=== PATIENT | female | born 1990 | race American Indian/Alaskan Native ===

== ENCOUNTER 2018-07-07 07:28 | Emergency (ER) | payer MEDICAID ==
[2018-07-07 07:34] VITALS: BP 102/72
[2018-07-07 08:23] LABS: Basophils % (Auto) 0.2 % (0.0-1.8); Eosinophils # (Auto) 0.1 K/mm3 (0.0-0.4); Eosinophils % (Auto) 1.4 % (0.0-4.3); Hematocrit 36.9 % (30.3-42.9); Hemoglobin 12.7 gm/dl (10.1-14.3); Lymphocytes # (Auto) 2.4 K/mm3 (1.2-5.4); Mean Corpuscular HGB Conc 34 % (30-34); Mean Corpuscular Volume 90 fl (79-97); Monocytes # (Auto) 0.5 K/mm3 (0.0-0.8); Monocytes % (Auto) 6.3 % (0.0-7.3); Platelet Count 264 K/mm3 (140-440); Red Blood Count 4.11 M/mm3 (3.65-5.03); Red Cell Distribution Width 13.2 % (13.2-15.2)
[2018-07-07 08:35] LABS: INR 1.04 (0.87-1.13)
[2018-07-07 08:36] LABS: Partial Thromboplastin Time 31.2 Sec. (24.2-36.6)
[2018-07-07 08:44] LABS: Alanine Aminotransferase 8 units/L (7-56); Albumin 4.2 g/dL (3.9-5); BUN/Creatinine Ratio 18; Blood Urea Nitrogen 14 mg/dL (7-17); Hemolysis Index 7
--- NOTE | 2018-07-07 09:27 | Emergency Department Report ---
Vomiting/Diarrhea - HPI Chief Complaint: GI Bleed Stated Complaint: N/V Time Seen by Provider: 07/07/18 09:00 Duration: 3 Days Severity: mild Nausea/Vomiting Severity: None Diarrhea Severity: Mild Pain Location: Generalized (abdominal but resolved 2 days ago) Pain Severity: None Symptoms: Yes Watery Diarrhea, Yes Bloody diarrhea (1 episode with bright red only a drop), Yes Able to Tolerate Fluids, Yes Recent Unusual Foods, No Fever, No Recent Untreated Water, No Recent use of Antibiotics, No Family w/ Similar Symptoms, No Contacts w/ Similar Symptoms, No Rash, No Hematuria, No Recent URI Symptoms Other History: Patient is a 27-year-old healthy female presents to ED complaining of one episode of seeing blood in her stool. She denies fevers/chills/nausea vomiting/abdominal pain. ED Review of Systems ROS: Stated complaint: N/V Other details as noted in HPI Comment: All other systems reviewed and negative ED Past Medical Hx - Past Medical History Previous Medical History?: Yes Hx Hypertension: No Hx Diabetes: No Hx Deep Vein Thrombosis: No Hx Renal Disease: No Hx Sickle Cell Disease: No Hx Seizures: No Hx Asthma: No Hx HIV: No Additional medical history: colitis. c-diff (September 2017) - Surgical History Past Surgical History?: No - Social History Smoking Status: Never Smoker Substance Use Type: None - Medications Home Medications: Home Medications Medication Instructions Recorded Confirmed Last Taken Type Mag Hydrox/Aluminum Hyd/Simeth 15 ml PO TID #1 oral.susp 07/07/18 Unknown Rx [Maalox Advanced Suspension] Vomiting Diarrhea Exam - Exam General: Vital signs noted. No distress. Alert and acting appropriately. HEENT: Yes Moist Mucous Membranes, No Pharyngeal Erythema, No Pharyngeal Exudates, No Rhinorrhea, No Conjuctival Injection, No Frontal Tenderness, No Maxillary Tenderness Neck: No Adenopathy, No Rigidity Lungs: Yes Clear Lung Sounds, Yes Good Air Exchange, No Wheezes, No Stridor, No Cough, No Nasal Flaring, No Retractions, No Use of Accessory Muscles Heart exam: Regular: Yes, Murmur: No, Tachycardia: No Abdomen: Tenderness: No, Peritoneal Signs: No, Distention: No, Hyperactive Bowel sounds: No Skin exam: Rash: No, Edema: No, Normal turgor: Yes Neurologic: Alert and oriented, no deficits. Musculoskeletal: Unremarkable. Exam: Rectum: Mild first-degree hemorrhoid, nonbleeding, no swelling. ED Course Vital Signs 07/07/18 07/07/18 07:31 08:00 Temperature 97.4 F L Pulse Rate 75 Respiratory 16 18 Rate Blood Pressure 102/72 O2 Sat by Pulse 100 99 Oximetry ED Medical Decision Making - Lab Data Result diagrams: 07/07/18 07:51 07/07/18 07:51 - Medical Decision Making 27-year-old female presents to mild gastroenteritis All labs are within normal limits. Patient is in no acute distress upon evaluation, nontender abdomen Vital signs are normal, she is in no acute distress, Critical care attestation.: If time is entered above; I have spent that time in minutes in the direct care of this critically ill patient, excluding procedure time. ED Disposition Clinical Impression: Gastroenteritis, External hemorrhoid Disposition: DC-01 TO HOME OR SELFCARE Is pt being admited?: No Does the pt Need Aspirin: No Condition: Stable Instructions: Gastroenteritis (ED), Hemorrhoids (ED) Additional Instructions: Make sure to follow up with the primary care physician as discussed. Take all your medications as you've been prescribed. If you have any worsening symptoms or develop new symptoms please return to ED immediately. Prescriptions: Mag Hydrox/Aluminum Hyd/Simeth [Maalox Advanced Suspension] 15 ml PO TID #1 oral.susp Referrals: CLARIBEL KNIGHT MD [Primary Care Provider] - 3-5 Days Forms: Accompanied Note, Work/School Release Form(ED) Time of Disposition: 09:29
== END 2018-07-07 09:47 | disposition home or self-care (01) ==
LOC: ED 07:28
DX: K52.9 Noninfective gastroenteritis and colitis, unspecified (principal); K64.4 Residual hemorrhoidal skin tags
CPT/HCPCS: 36415; 80053; 83690; 85025; 85610; 85730; 86850; 86900; 86901

== ENCOUNTER 2019-04-01 08:03 | Emergency (ER) | payer MEDICAID ==
--- NOTE | 2019-04-01 09:25 | Emergency Department Report ---
- General Chief Complaint: Upper Respiratory Infection Stated Complaint: WEAK/BODY ACHES Time Seen by Provider: 04/01/19 08:33 Source: patient Mode of arrival: Ambulatory Limitations: No Limitations - History of Present Illness MD Complaint: rhinorrhea, nasal congestion -: Sudden, days(s) (1) Consistency: constant Improves With: nothing Worsens With: nothing Associated Symptoms: chills, rhinorrhea, nasal congestion. denies: myalgias, diaphoresis, chest pain, shortness of breath, nausea, vomiting - Related Data Previous Rx's Medication Instructions Recorded Last Taken Type Mag Hydrox/Aluminum Hyd/Simeth 15 ml PO TID #1 oral.susp 07/07/18 Unknown Rx [Maalox Advanced Suspension] Brompheniramine/Pseudoephed/Dm 5 ml PO Q6H PRN #240 syrup 04/01/19 Unknown Rx [Sudjrikbgi-Hyutfsryaya-Qo Syr] Ketorolac [Toradol] 10 mg PO Q6H PRN #15 tablet 04/01/19 Unknown Rx predniSONE [Deltasone] 50 mg PO QDAY #5 tab 04/01/19 Unknown Rx Allergies Allergy/AdvReac Type Severity Reaction Status Date / Time No Known Allergies Allergy Verified 11/25/14 13:51 ED Review of Systems ROS: Stated complaint: WEAK/BODY ACHES Other details as noted in HPI Comment: All other systems reviewed and negative ED Past Medical Hx - Past Medical History Previous Medical History?: No Hx Hypertension: No Hx Diabetes: No Hx Deep Vein Thrombosis: No Hx Renal Disease: No Hx Sickle Cell Disease: No Hx Seizures: No Hx Asthma: No Hx HIV: No Additional medical history: colitis. c-diff (September 2017) - Surgical History Past Surgical History?: No - Social History Smoking Status: Never Smoker Substance Use Type: None - Medications Home Medications: Home Medications Medication Instructions Recorded Confirmed Last Taken Type Mag Hydrox/Aluminum Hyd/Simeth 15 ml PO TID #1 oral.susp 07/07/18 Unknown Rx [Maalox Advanced Suspension] Brompheniramine/Pseudoephed/Dm 5 ml PO Q6H PRN #240 syrup 04/01/19 Unknown Rx [Kstgbhlros-Pcjqaxoogvy-Eg Syr] Ketorolac [Toradol] 10 mg PO Q6H PRN #15 tablet 04/01/19 Unknown Rx predniSONE [Deltasone] 50 mg PO QDAY #5 tab 04/01/19 Unknown Rx ED Physical Exam - General Limitations: No Limitations General appearance: alert, in no apparent distress - Head Head exam: Present: atraumatic, normocephalic - Eye Eye exam: Present: normal appearance, PERRL, EOMI - ENT ENT exam: Present: normal orophraynx, mucous membranes moist, other (nasal congestion bilaterally cleared for discharge. Posterior pharynx is clear. Airway patent. No lymphadenopathy noted.) - Neck Neck exam: Present: normal inspection - Respiratory Respiratory exam: Present: normal lung sounds bilaterally. Absent: respiratory distress - Cardiovascular Cardiovascular Exam: Present: regular rate, normal rhythm. Absent: systolic murmur, diastolic murmur, rubs, gallop - GI/Abdominal GI/Abdominal exam: Present: soft, normal bowel sounds - Extremities Exam Extremities exam: Present: normal inspection - Back Exam Back exam: Present: normal inspection - Neurological Exam Neurological exam: Present: alert, oriented X3 - Psychiatric Psychiatric exam: Present: normal affect, normal mood - Skin Skin exam: Present: warm, dry, intact, normal color. Absent: rash ED Course Vital Signs 04/01/19 08:18 Pulse Rate 112 H Respiratory 16 Rate Blood Pressure 109/66 [Right] O2 Sat by Pulse 99 Oximetry Critical care attestation.: If time is entered above; I have spent that time in minutes in the direct care of this critically ill patient, excluding procedure time. ED Disposition Clinical Impression: Upper respiratory infection Disposition: DC-01 TO HOME OR SELFCARE Is pt being admited?: No Does the pt Need Aspirin: No Condition: Stable Instructions: Upper Respiratory Infection (ED), Cold Symptoms (ED), Viral Syndrome (ED) Prescriptions: Brompheniramine/Pseudoephed/Dm [Gvdjiqcaco-Lbjaylcqiry-Hk Syr] 5 ml PO Q6H PRN #240 syrup PRN Reason: Cough predniSONE [Deltasone] 50 mg PO QDAY #5 tab Ketorolac [Toradol] 10 mg PO Q6H PRN #15 tablet PRN Reason: Pain Referrals: [facility] [Provider Group] - 3-5 Days
[2019-04-01 10:00] VITALS: BP 110/70
== END 2019-04-01 09:59 | disposition home or self-care (01) ==
LOC: ED 08:03
DX: J06.9 Acute upper respiratory infection, unspecified (principal); Z79.899 Other long term (current) drug therapy

== ENCOUNTER 2021-06-21 08:22 | Emergency (ER) | payer MEDICAID ==
--- NOTE | 2021-06-21 09:05 | Emergency Department Report ---
ED Dysuria HPI - HPI Chief Complaint: Urogenital-Female Stated Complaint: POSS YEAST INFECTION Duration: 2 Days Location of Discomfort: Other Severity: Mild Symptoms: Dysuria: No, Frequency: No, Suprapubic Pain: No, Flank Pain: No, Fever: No, Hematuria: No, Abdominal Pain: No, Previous UTI's: No Other History: Ms. Howard is a 30-year-old female that comes to the emergency room with white vaginal discharge after completing her antibiotics. She did call her doctor but they were unable to get her in so she presents to the ER. She is not concerned for STDs. She has no dysuria. No abdominal pain. No back pain. No fever or chills. She did not try any Monistat [id number]. She comes to the emergency room for Diflucan. ED Review of Systems ROS: Stated complaint: POSS YEAST INFECTION Other details as noted in HPI Comment: All other systems reviewed and negative ED Past Medical Hx - Past Medical History Previous Medical History?: No Hx Hypertension: No Hx Diabetes: No Hx Deep Vein Thrombosis: No Hx Renal Disease: No Hx Sickle Cell Disease: No Hx Seizures: Yes Hx Asthma: No Hx HIV: No Additional medical history: colitis. c-diff (September 2017) - Surgical History Past Surgical History?: No - Family History Family history: no significant - Social History Smoking Status: Never Smoker Substance Use Type: None - Medications Home Medications: Home Medications Medication Instructions Recorded Confirmed Last Taken Type Mag Hydrox/Aluminum Hyd/Simeth 15 ml PO TID #1 oral.susp 07/07/18 Unknown Rx [Maalox Advanced Suspension] Brompheniramine/Pseudoephed/Dm 5 ml PO Q6H PRN #240 syrup 04/01/19 Unknown Rx [Mmxnltdkbp-Retgckzhtwx-Jh Syr] Ketorolac [Toradol] 10 mg PO Q6H PRN #15 tablet 04/01/19 Unknown Rx predniSONE [Deltasone] 50 mg PO QDAY #5 tab 04/01/19 Unknown Rx Acetaminophen/Codeine [Tylenol 1 tab PO Q6H PRN #12 tab 05/23/19 Unknown Rx /Codeine # 3 tab] Ibuprofen [Motrin] 600 mg PO Q8H PRN #24 tablet 05/23/19 Unknown Rx Neomycn/Bacitrc/Polymyx/Pramox 1 applicatio TP Q8H #1 tube 05/23/19 Unknown Rx [Neosporin + Pain Relief Oint] cephALEXin [Keflex] 500 mg PO Q8HR #30 cap 05/23/19 Unknown Rx Fluconazole [Diflucan TAB] 100 mg PO QDAY #3 tablet 06/21/21 Unknown Rx Dysuria Exam - Exam General: Vital signs noted. No distress. Alert and acting appropriately. Exam: Yes Moist Mucous Membranes, No CVA Tenderness, No Abdominal Tenderness, No Rigidity or Guarding ED Course Vital Signs 06/21/21 08:51 Temperature 98.0 F Pulse Rate 72 Respiratory 14 Rate Blood Pressure 105/62 O2 Sat by Pulse 98 Oximetry ED Medical Decision Making - Medical Decision Making Patient has no concern for STDs. She has no dysuria. No abdominal pain. No nausea vomiting diarrhea. No fever or chills. Thick white discharge after completing her antibiotics. She was on amoxicillin for 10 days. Patient educated on [id number] yeast treatment. I have given her Diflucan tabs. Patient being discharged home with discharge plan of care including meds, diet, activity and follow-up. She understands she needs to follow-up with her [facility]MER. Vital Signs 06/21/21 08:51 Temperature 98.0 F Pulse Rate 72 Respiratory 14 Rate Blood Pressure 105/62 O2 Sat by Pulse 98 Oximetry - Differential Diagnosis Vaginitis Critical care attestation.: If time is entered above; I have spent that time in minutes in the direct care of this critically ill patient, excluding procedure time. ED Disposition Clinical Impression: Vaginitis Qualifiers: Chronicity: acute Qualified Code(s): N76.0 - Acute vaginitis Disposition: HOME / SELF CARE / HOMELESS Is pt being admited?: No Does the pt Need Aspirin: No Condition: Stable Additional Instructions: FOLLOW UP WITH OBGYN WE DISCUSSED EAT YOGURT DAILY MED ORDERED TODAY STAY WELL HYDRATED Prescriptions: Fluconazole [Diflucan TAB] 100 mg PO QDAY #3 tablet Referrals: KEM HANDY MD [Staff Physician] - 3-5 Days Time of Disposition: 09:04
[2021-06-21 09:39] VITALS: BP 117/73
== END 2021-06-21 09:37 | disposition home or self-care (01) ==
LOC: ED 08:22
DX: N76.0 Acute vaginitis (principal)
CPT/HCPCS: 99282

== ENCOUNTER 2021-09-16 10:18 | Emergency (ER) | payer MEDICAID ==
[2021-09-16 10:53] VITALS: BP 108/70
--- NOTE | 2021-09-16 12:39 | Emergency Department Report ---
ED General Adult HPI - General Chief complaint: Skin/Abscess/Foreign Body Stated complaint: BOIL UNDER ARM/IRRATION Time Seen by Provider: 09/16/21 12:17 Source: patient Mode of arrival: Ambulatory Limitations: No Limitations - History of Present Illness Initial comments: 30-year-old female who presents for boil to right axillary. Patient has history of hydradenitis. States this is a recurring issue for her. Patient took amoxicillin last week however did not get better. Patient denies fevers or chills no nausea no vomiting. States that she would manually express some pus this morning in the shower. Symptoms are exacerbated by palpation. Symptoms are relieved by nothing tried. Patient does not have diabetes. - Related Data Previous Rx's Medication Instructions Recorded Last Taken Type Mag Hydrox/Aluminum Hyd/Simeth 15 ml PO TID #1 oral.susp 07/07/18 Unknown Rx [Maalox Advanced Suspension] Brompheniramine/Pseudoephed/Dm 5 ml PO Q6H PRN #240 syrup 04/01/19 Unknown Rx [Vfusirwase-Petvqzyoipm-Wg Syr] Ketorolac [Toradol] 10 mg PO Q6H PRN #15 tablet 04/01/19 Unknown Rx predniSONE [Deltasone] 50 mg PO QDAY #5 tab 04/01/19 Unknown Rx Acetaminophen/Codeine [Tylenol 1 tab PO Q6H PRN #12 tab 05/23/19 Unknown Rx /Codeine # 3 tab] Ibuprofen [Motrin] 600 mg PO Q8H PRN #24 tablet 05/23/19 Unknown Rx Neomycn/Bacitrc/Polymyx/Pramox 1 applicatio TP Q8H #1 tube 05/23/19 Unknown Rx [Neosporin + Pain Relief Oint] cephALEXin [Keflex] 500 mg PO Q8HR #30 cap 05/23/19 Unknown Rx Fluconazole [Diflucan TAB] 100 mg PO QDAY #3 tablet 06/21/21 Unknown Rx cephALEXin [Keflex] 500 mg PO Q8H 7 Days #21 cap 09/16/21 Unknown Rx traMADoL [Ultram] 50 mg PO Q6HR PRN #12 tablet 09/16/21 Unknown Rx Allergies Allergy/AdvReac Type Severity Reaction Status Date / Time No Known Allergies Allergy Verified 11/25/14 13:51 ED Review of Systems ROS: Stated complaint: BOIL UNDER ARM/IRRATION Other details as noted in HPI Constitutional: denies: chills, fever Eyes: denies: eye pain, eye discharge, vision change ENT: denies: ear pain, throat pain Respiratory: denies: cough, shortness of breath, wheezing Cardiovascular: denies: chest pain, palpitations Endocrine: no symptoms reported Gastrointestinal: denies: abdominal pain, nausea, diarrhea Genitourinary: denies: urgency, dysuria, discharge Musculoskeletal: denies: back pain, joint swelling, arthralgia Skin: other (Abscess right axillary 1 x 2 cm) Neurological: denies: headache, weakness, paresthesias Psychiatric: denies: anxiety, depression Hematological/Lymphatic: denies: easy bleeding, easy bruising ED Past Medical Hx - Past Medical History Previous Medical History?: Yes Hx Hypertension: No Hx Diabetes: No Hx Deep Vein Thrombosis: No Hx Renal Disease: No Hx Sickle Cell Disease: No Hx Seizures: Yes Hx Asthma: No Hx HIV: No Additional medical history: colitis. c-diff (September 2017), Boil - Surgical History Past Surgical History?: No - Social History Smoking Status: Never Smoker Substance Use Type: None - Medications Home Medications: Home Medications Medication Instructions Recorded Confirmed Last Taken Type Mag Hydrox/Aluminum Hyd/Simeth 15 ml PO TID #1 oral.susp 07/07/18 Unknown Rx [Maalox Advanced Suspension] Brompheniramine/Pseudoephed/Dm 5 ml PO Q6H PRN #240 syrup 04/01/19 Unknown Rx [Iyawhmcjbn-Hgqtgwphgkf-He Syr] Ketorolac [Toradol] 10 mg PO Q6H PRN #15 tablet 04/01/19 Unknown Rx predniSONE [Deltasone] 50 mg PO QDAY #5 tab 04/01/19 Unknown Rx Acetaminophen/Codeine [Tylenol 1 tab PO Q6H PRN #12 tab 05/23/19 Unknown Rx /Codeine # 3 tab] Ibuprofen [Motrin] 600 mg PO Q8H PRN #24 tablet 05/23/19 Unknown Rx Neomycn/Bacitrc/Polymyx/Pramox 1 applicatio TP Q8H #1 tube 05/23/19 Unknown Rx [Neosporin + Pain Relief Oint] cephALEXin [Keflex] 500 mg PO Q8HR #30 cap 05/23/19 Unknown Rx Fluconazole [Diflucan TAB] 100 mg PO QDAY #3 tablet 06/21/21 Unknown Rx cephALEXin [Keflex] 500 mg PO Q8H 7 Days #21 cap 09/16/21 Unknown Rx traMADoL [Ultram] 50 mg PO Q6HR PRN #12 tablet 09/16/21 Unknown Rx ED Physical Exam - General Limitations: No Limitations General appearance: alert, in no apparent distress - Head Head exam: Present: atraumatic, normocephalic - Eye Eye exam: Present: normal appearance, EOMI Pupils: Present: normal accommodation - ENT ENT exam: Present: mucous membranes moist - Neck Neck exam: Present: normal inspection, full ROM. Absent: tenderness - Respiratory Respiratory exam: Present: normal lung sounds bilaterally. Absent: respiratory distress, wheezes, stridor - Cardiovascular Cardiovascular Exam: Present: regular rate, normal rhythm, normal heart sounds. Absent: systolic murmur, diastolic murmur, rubs, gallop - GI/Abdominal GI/Abdominal exam: Present: soft, normal bowel sounds. Absent: distended, tenderness - Rectal Rectal exam: Present: deferred - Extremities Exam Extremities exam: Present: normal inspection - Back Exam Back exam: Present: normal inspection, full ROM. Absent: CVA tenderness (R), CVA tenderness (L) - Neurological Exam Neurological exam: Present: alert, oriented X3, CN II-XII intact - Psychiatric Psychiatric exam: Present: normal affect - Skin Skin exam: Present: warm, dry, erythema, other (Abscess right axillary 1 x 2 cm fluctuant erythema painful to touch warm to touch no drainage.) ED Course Vital Signs 09/16/21 10:52 Temperature 98.1 F Pulse Rate 85 Respiratory 18 Rate Blood Pressure 108/70 O2 Sat by Pulse 98 Oximetry - I & D Right Arm Type of Procedure: Simple Site: Right axillary abscess 1 x 2 cm there is no erythema fluctuance warm to brigitte Blade Size: 11 I & D Procedure: betadine prep, sterile drapes applied, sterile dressing applied Progress: Right axillar abscess anesthesia with 1% lidocaine x2 cc anesthesia is achieved. Site cleaned with Betadine solution. Incision with 11 blade scalpel. Loculations broken up with six-inch blunt forceps. There is moderate purulent drainage. Site irrigated with 10 cc sterile saline. Sterile dressing applied. Patient given wound care instructions. Patient verbalized agreement understanding of same. patient tolerated procedure with minimal distress. ED Medical Decision Making - Medical Decision Making Abscess right axillary incision and drainage see procedure note. Sterile dressings intact patient given follow-up care instructions including follow-up with primary care doctor in 2 days. And wound care instructions. Patient DC to home in stable condition at this time. Critical care attestation.: If time is entered above; I have spent that time in minutes in the direct care of this critically ill patient, excluding procedure time. ED Disposition Clinical Impression: Hydradenitis, Abscess of axilla, right Disposition: HOME / SELF CARE / HOMELESS Is pt being admited?: No Does the pt Need Aspirin: No Condition: Stable Instructions: Incision and Drainage, Care After, Hidradenitis Suppurativa Additional Instructions: Take medications as prescribed, follow-up with your primary care doctor in 2 to 3 days. Return to emergency department should symptoms worsen. Prescriptions: cephALEXin [Keflex] 500 mg PO Q8H 7 Days #21 cap traMADoL [Ultram] 50 mg PO Q6HR PRN #12 tablet PRN Reason: Pain Referrals: SÁNCHEZ CANCHOLA DO [Staff Physician] - 3-5 Days Forms: Work/School Release Form(ED) Time of Disposition: 13:10
== END 2021-09-16 13:55 | disposition home or self-care (01) ==
LOC: ED 10:18
DX: L02.411 Cutaneous abscess of right axilla (principal); L73.2 Hidradenitis suppurativa; R56.9 Unspecified convulsions; Z79.899 Other long term (current) drug therapy
CPT/HCPCS: 99282

== ENCOUNTER 2021-12-23 08:21 | Emergency (ER) | payer MEDICAID ==
[2021-12-23 08:48] VITALS: BP 104/70
--- NOTE | 2021-12-23 11:07 | Emergency Department Report ---
ED General Adult HPI - General Chief complaint: Extremity Injury, Lower Stated complaint: L LEG SWOLLEN AND PAIN LEFT SHOULDER PAIN Time Seen by Provider: 12/23/21 10:43 Source: patient Mode of arrival: Ambulatory Limitations: No Limitations - History of Present Illness Initial comments: 31-year-old female no significant past medical history reports to the ER with complaints of posterior left knee pain with swelling for about 1 month. Patient reports no shortness of breath, no history of smoking, currently on no control. No reports of long travel within the car. Patient does report she stands a lot at work. Patient reports pain is about 7 out of 10. Patient reports no other acute signs or symptoms. Severity scale (0 -10): 5 - Related Data Previous Rx's Medication Instructions Recorded Last Taken Type Mag Hydrox/Aluminum Hyd/Simeth 15 ml PO TID #1 oral.susp 07/07/18 Unknown Rx [Maalox Advanced Suspension] Brompheniramine/Pseudoephed/Dm 5 ml PO Q6H PRN #240 syrup 04/01/19 Unknown Rx [Ttspsqjfpu-Snqgeulfevm-Lz Syr] Ketorolac [Toradol] 10 mg PO Q6H PRN #15 tablet 04/01/19 Unknown Rx predniSONE [Deltasone] 50 mg PO QDAY #5 tab 04/01/19 Unknown Rx Acetaminophen/Codeine [Tylenol 1 tab PO Q6H PRN #12 tab 05/23/19 Unknown Rx /Codeine # 3 tab] Ibuprofen [Motrin] 600 mg PO Q8H PRN #24 tablet 05/23/19 Unknown Rx Neomycn/Bacitrc/Polymyx/Pramox 1 applicatio TP Q8H #1 tube 05/23/19 Unknown Rx [Neosporin + Pain Relief Oint] cephALEXin [Keflex] 500 mg PO Q8HR #30 cap 05/23/19 Unknown Rx Fluconazole [Diflucan TAB] 100 mg PO QDAY #3 tablet 06/21/21 Unknown Rx cephALEXin [Keflex] 500 mg PO Q8H 7 Days #21 cap 09/16/21 Unknown Rx traMADoL [Ultram] 50 mg PO Q6HR PRN #12 tablet 09/16/21 Unknown Rx Ibuprofen [Motrin] 800 mg PO Q8HR PRN 6 Days #18 12/23/21 Unknown Rx tablet methOCARBAMOL [Robaxin TAB] 500 mg PO BID PRN 7 Days #14 tab 12/23/21 Unknown Rx Allergies Allergy/AdvReac Type Severity Reaction Status Date / Time No Known Allergies Allergy Verified 11/25/14 13:51 ED Review of Systems ROS: Stated complaint: L LEG SWOLLEN AND PAIN LEFT SHOULDER PAIN Other details as noted in HPI Comment: All other systems reviewed and negative Musculoskeletal: other (Left knee posterior pain with slight swelling noted.) ED Past Medical Hx - Past Medical History Previous Medical History?: Yes Hx Hypertension: No Hx Diabetes: No Hx Deep Vein Thrombosis: No Hx Renal Disease: No Hx Sickle Cell Disease: No Hx Seizures: Yes Hx Asthma: No Hx HIV: No Additional medical history: colitis. c-diff (September 2017), Boil, Vaginal delivery x 3 - Surgical History Past Surgical History?: No - Social History Smoking Status: Never Smoker Substance Use Type: None - Medications Home Medications: Home Medications Medication Instructions Recorded Confirmed Last Taken Type Mag Hydrox/Aluminum Hyd/Simeth 15 ml PO TID #1 oral.susp 07/07/18 Unknown Rx [Maalox Advanced Suspension] Brompheniramine/Pseudoephed/Dm 5 ml PO Q6H PRN #240 syrup 04/01/19 Unknown Rx [Purvwtsczr-Oguunppnoss-Yo Syr] Ketorolac [Toradol] 10 mg PO Q6H PRN #15 tablet 04/01/19 Unknown Rx predniSONE [Deltasone] 50 mg PO QDAY #5 tab 04/01/19 Unknown Rx Acetaminophen/Codeine [Tylenol 1 tab PO Q6H PRN #12 tab 05/23/19 Unknown Rx /Codeine # 3 tab] Ibuprofen [Motrin] 600 mg PO Q8H PRN #24 tablet 05/23/19 Unknown Rx Neomycn/Bacitrc/Polymyx/Pramox 1 applicatio TP Q8H #1 tube 05/23/19 Unknown Rx [Neosporin + Pain Relief Oint] cephALEXin [Keflex] 500 mg PO Q8HR #30 cap 05/23/19 Unknown Rx Fluconazole [Diflucan TAB] 100 mg PO QDAY #3 tablet 06/21/21 Unknown Rx cephALEXin [Keflex] 500 mg PO Q8H 7 Days #21 cap 09/16/21 Unknown Rx traMADoL [Ultram] 50 mg PO Q6HR PRN #12 tablet 09/16/21 Unknown Rx Ibuprofen [Motrin] 800 mg PO Q8HR PRN 6 Days #18 12/23/21 Unknown Rx tablet methOCARBAMOL [Robaxin TAB] 500 mg PO BID PRN 7 Days #14 tab 12/23/21 Unknown Rx ED Physical Exam - General Limitations: No Limitations General appearance: alert, in no apparent distress - Head Head exam: Present: atraumatic, normocephalic - Eye Eye exam: Present: normal appearance - ENT ENT exam: Present: mucous membranes moist - Neck Neck exam: Present: normal inspection - Respiratory Respiratory exam: Present: normal lung sounds bilaterally. Absent: respiratory distress - Cardiovascular Cardiovascular Exam: Present: regular rate, normal rhythm. Absent: systolic murmur, diastolic murmur, rubs, gallop - GI/Abdominal GI/Abdominal exam: Present: soft, normal bowel sounds - Extremities Exam Extremities exam: Present: normal inspection - Expanded Lower Extremity Exam Left Knee exam: Present: full ROM, tenderness (Posterior), swelling (Posterior). Absent: erythema - Back Exam Back exam: Present: normal inspection - Neurological Exam Neurological exam: Present: alert, oriented X3 - Psychiatric Psychiatric exam: Present: normal affect, normal mood - Skin Skin exam: Present: warm, dry, intact, normal color. Absent: rash ED Course Vital Signs 12/23/21 08:47 Temperature 98.8 F Pulse Rate 84 Respiratory 20 Rate Blood Pressure 104/70 [Right] O2 Sat by Pulse 99 Oximetry ED Medical Decision Making - Radiology Data [facility] [address] [place] [address] XRay Report Signed Patient: NATALIE MCGILL MR#: [id number] : 1990 Acct:[id number] Age/Sex: 31 / F ADM Date: 12/23/21 Loc: ED Attending Dr: Ordering Physician: DAGO AZEVEDO NP Date of Service: 12/23/21 Procedure(s): XR knee 3V LT Accession Number(s): [id number] cc: DAGO AZEVEDO NP Fluoro Time In Minutes: LEFT KNEE 3 VIEW(S) INDICATION / CLINICAL INFORMATION: leg pain COMPARISON: None available. FINDINGS: BONES / JOINT(S): No acute fracture or subluxation. No significant arthritis. SOFT TISSUES: No significant abnormality. ADDITIONAL FINDINGS: None. Signer Name: Wood Rose DO Albert Signed: 12/23/2021 12:45 PM Workstation Name: [id number] Transcribed By: SUSANA Dictated By: WOOD GILL DO Electronically Authenticated By: WOOD GILL DO Signed Date/Time: 12/23/21 1245 DD/ 1244 TD/TT: [address] [address] Vascular Lab Report Signed Patient: NATALIE MCGILL MR#: [id number] : 1990 Acct:[id number] Age/Sex: 31 / F ADM Date: 12/23/21 Loc: ED Attending Dr: Ordering Physician: DAGO AZEVEDO NP Date of Service: 12/23/21 Procedure(s): VL venous duplex LE LT Accession Number(s): [id number] cc: DAGO AZEVEDO NP DUPLEX DOPPLER LOWER EXTREMITY VEINS, LEFT INDICATION / CLINICAL INFORMATION: left leg pain with swelling. TECHNIQUE: Duplex doppler imaging was performed through the veins of the left lower extremity using venous compression and other maneuvers. COMPARISON: None available. FINDINGS: LEFT COMMON FEMORAL VEIN: Negative. LEFT FEMORAL VEIN: Negative. LEFT POPLITEAL VEIN: Negative. LEFT CALF VEINS: Negative. ADDITIONAL FINDINGS: None. IMPRESSION: 1. No sonographic evidence for DVT in the left lower extremity. Signer Name: Behzad Cruz MD Signed: 12/23/2021 11:48 AM Workstation Name: [id number] Transcribed By: BETO Dictated By: Behzad Cruz MD Electronically Authenticated By: Behzad Cruz MD Signed Date/Time: 12/23/21 1148 DD/ 1148 TD/TT: - Medical Decision Making 31-year-old female no significant past medical history reports to the ER with complaints of left posterior knee pain with swelling for about 1 month. On physical exam range of motion is intact. Tenderness and swelling is noted to the posterior side of the left knee. No erythema noted. No calf tenderness is noted. X-rays negative for no acute findings. Ultrasound is negative for no DVT noted. Patient informed of her x-ray and ultrasound results. Patient informed to follow her primary care provider. Patient agrees with plan of care and verbalized understanding. No further work-up is needed at this time.. Vital Signs 12/23/21 08:47 Temperature 98.8 F Pulse Rate 84 Respiratory 20 Rate Blood Pressure 104/70 [Right] O2 Sat by Pulse 99 Oximetry Vital Signs 12/23/21 08:47 Temperature 98.8 F Pulse Rate 84 Respiratory 20 Rate Blood Pressure 104/70 [Right] O2 Sat by Pulse 99 Oximetry Critical care attestation.: If time is entered above; I have spent that time in minutes in the direct care of this critically ill patient, excluding procedure time. ED Disposition Clinical Impression: Posterior left knee pain Disposition: HOME / SELF CARE / HOMELESS Is pt being admited?: No Condition: Stable Instructions: Acute Knee Pain, Adult, Musculoskeletal Pain, Joint Pain Prescriptions: Ibuprofen [Motrin] 800 mg PO Q8HR PRN 6 Days #18 tablet PRN Reason: Pain , Severe (7-10) methOCARBAMOL [Robaxin TAB] 500 mg PO BID PRN 7 Days #14 tab PRN Reason: muscle pain Referrals: PAWEL BOYD MD [Primary Care Provider] - 3-5 Days [facility] [Outside] - 3-5 Days [facility] [Outside] - 3-5 Days [facility] [Outside] - 3-5 Days
--- NOTE | 2021-12-23 11:53 | Vascular Lab Report ---
DUPLEX DOPPLER LOWER EXTREMITY VEINS, LEFT INDICATION / CLINICAL INFORMATION: left leg pain with swelling. TECHNIQUE: Duplex doppler imaging was performed through the veins of the left lower extremity using venous compr ession and other maneuvers. COMPARISON: None available. FINDINGS: LEFT COMMON FEMORAL VEIN: Negative. LEFT FEMORAL VEIN: Negative. LEFT POPLITEAL VEIN: Negative. LEFT CALF VEINS: Negative. ADDITIONAL FINDINGS: None. IMPRESSION: 1. No sonographic evidence for DVT in the left lower extremity. Signer Name: Behzad Cruz MD Signed: 12/23/2021 11:48 AM Workstation Name: [id number]
--- NOTE | 2021-12-23 12:49 | XRay Report ---
LEFT KNEE 3 VIEW(S) INDICATION / CLINICAL INFORMATION: leg pain COMPARISON: None available. FINDINGS: BONES / JOINT(S): No acute fracture or subluxation. No significant arthritis. SOFT TISSUES: No significant abnormality. ADDITIONAL FINDINGS: None. Signer Name: Wood Price DO Signed: 12/23/2021 12:45 PM Workstation Name: [id number]
== END 2021-12-23 14:08 | disposition home or self-care (01) ==
LOC: ED 08:21
DX: M25.562 Pain in left knee (principal); R56.9 Unspecified convulsions
CPT/HCPCS: 99284